=== PATIENT | female | born 1995 | race Two or more races ===

== ENCOUNTER 2024-06-27 12:35 | Outpatient (CLI) | payer MEDICAID, SELFPAY ==
[2024-06-27 12:52] VITALS: BP 141/83; PULSE 80
[2024-06-27 13:13] VITALS: BP 150/86; PULSE 86
[2024-06-27 13:28] VITALS: BP 113/54; PULSE 84
[2024-06-27 13:49] VITALS: BP 141/83; PULSE 80; RESP 16; RESP 98; TEMP 36.8
[2024-06-27 13:50] VITALS: BMI 34.9
== END 2024-06-27 14:05 | disposition home or self-care (01) ==
LOC: CNST 12:47 → S4SX 12:47
PROVIDERS: Referring Provider Obstetrics & Gynecology; Visit Provider Obstetrics & Gynecology
DX: Z34.83 Encounter for supervision of other normal pregnancy, third trimester (principal); Z36.9 Encounter for antenatal screening, unspecified; Z3A.39 39 weeks gestation of pregnancy
CPT/HCPCS: 59025

== ENCOUNTER 2024-06-30 10:21 | Inpatient (IN) | payer MEDICAID, SELFPAY ==
[2024-06-30] VITALS (20 sets, daily range): BP systolic 102–127; BP diastolic 64–80; PULSE 62–89; RESP 12–20; TEMP 36.2–36.9; O2SAT 16–99; BMI 35.0
[2024-06-30] MEDS: RINGERS LACTATED 1000 ML 1,000 ML 100 ML IV ×2 (11:04→12:03)
[2024-06-30 11:41] LABS: Basophils % (Auto) 0 % (0-2.5); Eosinophils % (Auto) 0 % (0-10); Hematocrit 36.5 % (36.0-46.0); Hemoglobin 12.3 g/dL (12.0-16.0); Immature Granulocytes % (Auto) 0 % (0-0); Immature Granulocytes Auto 0.02 Thou/mm3 (0.00-0.00); Lymphocytes # (Auto) 1.8 Thou/mm3 (1.0-4.8); Lymphocytes % (Auto) 18 % (10-50); Mean Corpuscular HGB Conc 33.7 g/dl (31.0-37.0); Mean Corpuscular Hemoglobin 30.7 pg (25.0-35.0); Mean Corpuscular Volume 91 fL (80-100); Monocytes # (Auto) 0.9 Thou/mm3 (0.0-0.8); Monocytes % (Auto) 9 % (0-12); Neutrophils # (Auto) 7.2 Thou/mm3 (1.8-7.7); Neutrophils % (Auto) 72 % (37-80); Nucleated Red Blood Cell % 0 /100 WBC (0); Platelet Count 275 Thou/mm3 (140-440); RDW Standard Deviation 40.9 fL (36.4-46.3); Red Blood Count 4.01 Miln/mm3 (4.00-5.20); White Blood Count 9.9 Thou/mm3 (3.6-11.0)
[2024-06-30 12:10] LABS: Syphilis Nonreactive (Nonreactive)
[2024-06-30] MEDS: ceFAZolin/D5W 2 GM IV 2 GM/100 ML BAG IV (12:10)
[2024-06-30] MEDS: FAMOTIDINE INJ 10 MG/ML VIAL 2 ML 20 MG IV (12:11)
[2024-06-30] MEDS: METOCLOPRAMIDE INJ 5 MG/ML VIAL 2 ML 10 MG IVP (12:11)
--- NOTE | 2024-06-30 12:48 | PD.LDHP ---
Documentation for date of: 06/30/24 OB Labor/Induct. HPI History of Present Illness History of present illness: 29-year old 2 para 1-0-0-1 at 39 weeks and 3 days admitted for repeat low-transverse . Patient denies any contractions, leaking, bleeding. Patient had previous x 1 and an otherwise normal care. Patient was given an option of going to another institution for however patient had decided to go for repeat low-transverse . History of Present Dating criteria: LMP confirmed by 2nd trimester US Adequate Care: Yes Narrative: Anatomy within normal Placenta anterior no accreta Labs Narrative: GTT within normal limits NIPT normal Meds Home Medications and Allergies Home Medications ?Medication ?Instructions ?Recorded ?Confirmed ?Type prenat.vits,gil,[id number] 1 tab PO QDAY 06/25/21 06/30/24 History aspirin 81 mg tablet,delayed 81 mg PO QDAY 06/30/24 06/30/24 History release (Adult Low Dose Aspirin) Allergies Allergy/AdvReac Type Severity Reaction Status Date / Time No Known Allergies Allergy Verified 06/30/24 11:02 OB Exam Physical Exam Vital signs: Temp Pulse Resp BP Pulse Ox 98.4 F 82 18 125/80 98 06/30/24 10:25 06/30/24 11:14 06/30/24 10:25 06/30/24 11:14 06/30/24 11:24 Constitutional Constitutional: no acute distress Routine HEENT Exam Head: Present normocephalic and atraumatic Eye: Present EOMI and PERRL ENT: Present mucous membranes moist Routine Neck Exam Neck: Present supple and trachea midline Routine Cardiovascular Exam Cardiovascular: Present RRR Routine Abdominal Exam Abdominal: Present soft and normoactive bowel sounds Detailed Labor and Delivery Exam Comments: Not in labor cervix closed heart tone category 1 Routine Extremities Exam Extremities: Present full ROM Routine Skin Exam Skin: Present intact, dry and warm Routine Neurological Exam Neurological: Present alert, oriented X3 and CN II-XII intact Routine Psychiatric Exam Psychiatric: Present normal affect and normal thought process OB Results Labs 06/30/24 11:00 Labs: Short CBC 06/30/24 Range/Units 11:00 WBC 9.9 (3.6-11.0) Thou/mm3 Hgb 12.3 (12.0-16.0) g/dL Hct 36.5 (36.0-46.0) % Plt Count 275 (140-440) Thou/mm3 Impressions Impression: 29-year-old 2 para 1-0-0-1 at 39 weeks and 3 days admitted for repeat low-transverse Previous x 1 Hemoglobin 12.3 to start GTT within normal limits Anatomy normal placenta anterior no accreta NIPT normal OB Assessment & Plan Additional Plan Additional Plan Comment: Admitted for repeat low-transverse IV antibiotic prophylaxis DVT prophylaxis
[2024-06-30] MEDS: OXYTOCIN in NS 20 units 20 UNIT/1,000 ML BAG 125 UNIT IV ×2 (14:24→22:40)
--- NOTE | 2024-06-30 15:44 | ESOP_ITS ---
Operative Note - PARAMEDIC INSTRUCTOR Procedure Date of procedure: 06/30/24 Procedure Performed: repeat low transverse c section Indication: previous c section x1 Pre-Op diagnosis: same Post-Op diagnosis: same Anesthesia type: Spinal Procedure description: Informed consent was obtained and the patient was taken to the operating room.? Identity was confirmed by double identifiers and she was placed on the operating table.The abdomen and perineum were prepped in the usual sterile fashion and a Gray catheter was placed to continuous drainage.? Sterile drapes were applied.??A Pfannenstiel skin incision was made with a scalpel and carried to the subcutaneous fat up to the rectus fascia.? The rectus fascia was incised on either side of the midline and the incisions were extended bilaterally.? The fascia was gently dissected off the ventral surface of the rectus muscle both superiorly and inferiorly. extensive adhesiolysis was done between musle , peritoneum. Carefully a peritioneal window created hysterotomy incision made and extended bluntly with finger. Rupture of membranes revealed clear fluid. The baby was found vertex presentation and was delivered via vertex. The umbilical cord , was doubly clamped, divided and the was handed over to the waiting team. The placenta delivered by controlled cord traction . The interior of the uterus was now thorougly cleaned of all blood and debris and membranes.?The? hysterotomy was closed using 0 vicryl suture in double layers. Once the repair was completed the hysterotomy was inspected, was noted to be adequately hemostatic. The rectus fascia was repaired using Vicryl 0 in a running fashion.? The subcutaneous layer was now, approximated with 3-0 vicryl in double layers.? All bleeding points were cauterized using the Bovie.?The skin was closed using 4-0 Monocryl in a subcuticular fashion.? The skin was cleaned and a sterile dressing was applied. The patient was now undraped, the abdomen and back were thoroughly cleaned and she was now transferred to the recovery room in a stable Estimated blood loss (ml): 400 Surgical staff Operation Date: 06/30/24 12:45 Case Staff GRAVITY METER OPERATOR: Bulmaro Buckner RN First Assistant: Gomez Zhogn Diagnosis Problem List Completed Was Problem List Reviewed/Reconciled?: Yes
--- NOTE | 2024-06-30 15:48 | PD.LDDELS ---
Data ([facility]) Data Para: 1 Delivery Data ([facility]) Labor Data ROM Date: 06/30/24 ROM Time: 13:10 Rupture Type: AROM Amniotic Fluid: Clear Delivery Data Delivery Date: 06/30/24 Delivery Time: 13:15 Gestational age (weeks): 39 Gestational age (days): 3 Placenta Delivery Date: 06/30/24 Placenta Delivery Time: 13:15 Delivered by: Zack Nelson Delivery nurse: Franca Molina Other staff at delivery: Nursery Nurse Other staff at delivery: Khadra Velasco Delivery Method Delivery: Delivery Type: Repeat Anesthesia Type Primary Anesthesia: Spinal EBL Estimated blood loss (ml): 400 Data ([facility]) Data Infant Gender: Female Infant Weight Grams: 3795 1 Minute Total: 9 5 Minute Total: 9
[2024-06-30 18:47] LABS: Basophils % (Auto) 0 % (0-2.5); Eosinophils % (Auto) 0 % (0-10); Hematocrit 34.4 % (36.0-46.0); Hemoglobin 11.6 g/dL (12.0-16.0); Immature Granulocytes % (Auto) 0 % (0-0); Immature Granulocytes Auto 0.07 Thou/mm3 (0.00-0.00); Lymphocytes # (Auto) 1.8 Thou/mm3 (1.0-4.8); Lymphocytes % (Auto) 11 % (10-50); Mean Corpuscular HGB Conc 33.7 g/dl (31.0-37.0); Mean Corpuscular Hemoglobin 30.7 pg (25.0-35.0); Mean Corpuscular Volume 91 fL (80-100); Monocytes % (Auto) 6 % (0-12); Neutrophils # (Auto) 13.1 Thou/mm3 (1.8-7.7); Neutrophils % (Auto) 82 % (37-80); Nucleated Red Blood Cell % 0 /100 WBC (0); Platelet Count 226 Thou/mm3 (140-440); Red Blood Count 3.78 Miln/mm3 (4.00-5.20); White Blood Count 15.9 Thou/mm3 (3.6-11.0)
[2024-06-30] MEDS: ONDANSETRON INJ 2 MG/ML INJ 2 ML 4 MG IV (23:03)
[2024-07-01 01:30] VITALS: BP 120/69; PULSE 90; RESP 18; TEMP 36.7; O2SAT 97
[2024-07-01 04:36] VITALS: BP 114/72; PULSE 90; RESP 20; TEMP 36.7; O2SAT 96
--- NOTE | 2024-07-01 06:01 | PC.NURSE ---
[address] Ferreira via telephone that the pt was having nausea and vomiting at this time, new orders received for zofran 4mg Q6 IVP.
[2024-07-01 08:00] VITALS: BP 104/61; PULSE 90; RESP 17; TEMP 36.8; O2SAT 98
--- NOTE | 2024-07-01 09:00 | PD.LDPPPRG ---
Subjective Subjective Interval history: Patient doing well overall. Pain is minimal. She is ambulating no lightheadedness/dizziness. Voided spontaneously 1x since evans was removed this morning, a bit of discomfort but able to start stream and empty fully. Tolerating regular diet without nausea/vomiting. No fevers/chills, no CP/SOB. Exam Vital Signs Temp Pulse Resp BP Pulse Ox O2 Del Method 98.2 F 90 17 104/61 98 Room Air 07/01/24 08:00 07/01/24 08:00 07/01/24 08:00 07/01/24 08:00 07/01/24 08:00 07/01/24 08:00 Narrative Exam General: well developed, well nourished, no acute distress, conversant Cardiac: normal heart rate Lungs: breathing without distress Abdomen: soft, post-gravid, non-tender, no rebound or guarding, pfannenstiel incision covered by pressure dressing which was removed. Dry/clean/intact prineo bandage in place, slight oozing of blood on the far right aspect from removal of overlying bandage-pressure applied with overlying dressing for 1 minute and bleeding stopped. 4x4 sugical pad then folded over and placed in the crease of pannus flush against the area to apply pressure for this morning. Incision well reapproximated. No erythema, drainage or induration. Fundus firm at u-2cm. Extremities: no pain with palpation of calves, trace edema of BLE Objective Labs 06/30/24 18:31 Labs: Laboratory Results - last 24 hr 06/30/24 06/30/24 11:00 18:31 WBC 9.9 15.9 H D RBC 4.01 3.78 L Hgb 12.3 11.6 L Hct 36.5 34.4 L MCV 91 91 MCH 30.7 30.7 MCHC 33.7 33.7 RDW Std Deviation 40.9 41.0 Plt Count 275 226 D Neut % (Auto) 72 82 H Lymph % (Auto) 18 11 [place] % (Auto) 9 6 Eos % (Auto) 0 0 Baso % (Auto) 0 0 Neut # (Auto) 7.2 13.1 H Lymph # (Auto) 1.8 1.8 [place] # (Auto) 0.9 H 1.0 H Eos # (Auto) 0.0 0.0 Baso # (Auto) 0.0 0.0 Immature Gran # (Auto) 0.02 H 0.07 H Absolute Nucleated RBC 0.00 0.00 Immature Gran % 0 0 Nucleated RBC % 0 0 Syphilis Serology Nonreactive Blood Type A Positive Antibody Screen NEGATIVE Blood Bank Wristband ID Yes Assessment & Plan Problem List (1) Status post repeat low transverse section: Status: Acute Assessment and plan: Qiana is a 29yo [id number] s/p uncomplicated scheduled RLTCS, doing well on POD 1. Vitals wnl, benign exam. Hemodynamically stable with no evidence of infection. Appropriate change in H/H from 12.3 to 11.6. Plan: -Continue routine /post-op care -Due to void met -Regular diet -motrin 800mg PO Q8hr, norco 5/325mg PO Q6hr prn pain -Encourage ambulation and use of IS -Anticipate discharge home tomorrow if meeting all milestones (2) Obesity affecting : Status: Acute Time Spent With Patient Time: Total time spent is greater than 50% in coordination of care (as documented) at patient's floor/unit and/or counseling patient:
[2024-07-01] MEDS: IBUPROFEN TAB 400 MG TABLET 800 MG PO ×2 (09:08→17:02)
[2024-07-01 12:30] VITALS: BP 117/68; PULSE 78; RESP 18; TEMP 36.6; O2SAT 98
[2024-07-01 20:00] VITALS: BP 118/75; PULSE 90; RESP 18; TEMP 36.7; O2SAT 98
[2024-07-01] MEDS: Milk Of Magnesia Susp 30 ML UDC PO (20:11)
[2024-07-01] MEDS: SIMETHICONE 80 MG CHEW PO (20:12)
[2024-07-02] MEDS: IBUPROFEN TAB 400 MG TABLET 800 MG PO ×2 (00:09→08:47)
[2024-07-02 04:00] VITALS: BP 115/78; PULSE 98; RESP 20; TEMP 36.7; O2SAT 95
--- NOTE | 2024-07-02 07:37 | PD.LDDS ---
DS: Providers Provider Date of admission: 06/30/24 10:21 Primary care physician: Lexa Vo MD Admitting Provider: Zack Nelson MD Attending Provider on Admission: Zack Nelson MD Consults: 06/30/24 12:51 Referral Routine Comment: Attending Provider on DC: Zack Nelson MD Discharging Provider: Zack Nelson MD DS: Diagnosis Problem List Completed Was Problem List Reviewed/Reconciled?: Yes Summary/Hosp Course Brief History: 29-year old 2 para2, s/p Csection at 39 weeks and 3 days has been admitted for 48 hours. Has been doing well. Met all postop milestones and is discharged today Peripartum Data Procedures: Procedures Operation Date: 06/30/24 12:45 Actual Procedure Side Surgeon p in OB Zack Nelson MD Status at Discharge Cognitive/behavioral status at discharge: Stable Time Spent with Patient Time attestation: Total time spent providing and/or coordinating discharge services: Exam Vital Signs Temp Pulse Resp BP Pulse Ox O2 Del Method 98.0 F 98 20 115/78 95 Room Air 07/02/24 04:00 07/02/24 04:00 07/02/24 04:00 07/02/24 04:00 07/02/24 04:00 07/02/24 04:00 Constitutional Constitutional: no acute distress Routine HEENT Exam Head: Present normocephalic and atraumatic Eye: Present EOMI and PERRL ENT: Present mucous membranes moist Routine Neck Exam Neck: Present supple and trachea midline Routine Respiratory Exam Respiratory: Present chest non-tender, lungs clear, normal breath sounds and no resp distress Routine Cardiovascular Exam Cardiovascular: Present RRR Routine Abdominal Exam Abdominal: Present soft and normoactive bowel sounds Routine Extremities Exam Extremities: Present full ROM Routine Skin Exam Skin: Present intact, dry and warm Routine Neurological Exam Neurological: Present alert, oriented X3 and CN II-XII intact Routine Psychiatric Exam Psychiatric: Present normal affect and normal thought process Discharge Plan Plan Patient Disposition: HOME (Self Care) Patient condition on transfer: Stable Prescriptions/Referrals Prescriptions/Med Rec: New acetaminophen-codeine 300-15 mg tablet 1 tab PO Q12H PRN (Reason: pain) Qty: 14 0RF ibuprofen 800 mg tablet 800 mg PO Q8H PRN (Reason: pain) Qty: 20 0RF No Action prenat.vits,gil,[id number] Tablet 1 tab PO QDAY aspirin [Adult Low Dose Aspirin] 81 mg tablet,delayed release (DR/EC) 81 mg PO QDAY Referrals: Lexa Vo MD [Primary Care Provider] - Patient/Caregiver Discharge Instructions Discharge Activity: activity as tolerated and other Other Discharge Activity Instructions:: vaginal rest and no heavy lifting more than 10 pounds for 6 [address] while taking narcotic. keep incision clean and dry- do not submerge. Other Discharge Diet Instructions: regular Education Materials: Understanding Blues, Nutrition While , C Section Dc Print Language: [place] Activity Restrictions/Additional Instructions: follow up for incision check in 1 week, call clinic for appointment if not already scheduled Stand Alone Forms: Eva Award Info., Patient Portal Info Letter Discharge Order Discharge Orders: Discharge (Routine); Ordered 07/02/24 Ordered By: Zack Nelson Planned Discharge Date 07/02/24
[2024-07-02 07:50] VITALS: BP 109/71; PULSE 79; RESP 18; TEMP 36.6; O2SAT 97
== END 2024-07-02 13:05 | disposition home or self-care (01) | DRG 540 ==
LOC: S4SX 10:41 → S4NX 13:02
PROVIDERS: Admitting Provider Student in an Organized Health Care Education/Training Program; PCP Family Medicine; Visit Provider Student in an Organized Health Care Education/Training Program
PROC: 10D00Z1 Extraction of Products of Conception, Low, Open Approach (ICD-10-PCS; CPT 59514; principal; 2024-06-30 12:30)
DX: O34.211 Maternal care for low transverse scar from previous cesarean delivery (principal); Z37.0 Single live birth; Z3A.39 39 weeks gestation of pregnancy
CPT/HCPCS: 36415; 85025; 86780; 86850; 86900; 86901; A4649; J0689; J2274; J2371; J2405; J2590; J2765; J3010; J3490; J7120; A9270; J2270